=== PATIENT | male | born 1955 | race Caucasian/White ===

== ENCOUNTER → 2016-11-21 | Outpatient (CLI) | payer OTHER ==
[2016-11-21 08:53] LABS: BASOPHILS % (AUTO) 1 % (0-2); EOSINOPHILS # (AUTO) 0.3 10^3uL; EOSINOPHILS % (AUTO) 5 % (0-4); LYMPHOCYTES # (AUTO) 1.1 X10^3; MEAN CORPUSCULAR HEMOGLOBIN 30.1 PG (26.0-34.0); MEAN CORPUSCULAR HGB CONC 34.3 g/dL (31.0-37.0); MEAN CORPUSCULAR VOLUME 88 FL (80-100); MEAN PLATELET VOLUME 10.2 FL (6.0-9.5); MONOCYTES # (AUTO) 0.4 X10^3; MONOCYTES % (AUTO) 6 % (3-11); NEUTROPHILS # (AUTO) 4.8 X10^3; NEUTROPHILS % (AUTO) 70 % (51-67); PLATELET COUNT 201 10^3uL (150-450); WHITE BLOOD COUNT 6.88 10^3uL (4.0-11.0)
[2016-11-21 09:27] LABS: ALBUMIN 3.7 g/dL (3.4-5.0); ANION GAP 13.3 MEQ/L (3-15); CALCULATED IONIZED CALCIUM 4.2 mg/dL (3.8-4.6); TOTAL PROTEIN 6.3 g/dL (6.4-8.5)
== END ==
LOC: LAB 08:38
PROVIDERS: ATTEND Internal Medicine
DX: Z00.00 Encounter for general adult medical examination without abnormal findings (principal); E11.9 Type 2 diabetes mellitus without complications; E78.4 Other hyperlipidemia; I10 Essential (primary) hypertension; N03.2 Chronic nephritic syndrome with diffuse membranous glomerulonephritis
CPT/HCPCS: 36415; 80053; 80061; 83036; 84443; 85025

== ENCOUNTER → 2017-01-09 | Outpatient (CLI) | payer OTHER ==
[~2017-01-09] MED LIST: ALBU2.5V12 INH; AMLO10TA82 PO; ARFO15VI IH; ATOR20TA PO; BISO1TAB6 PO; DLT240CCR PO; DOXY100T41 PO; DXZS4T PO; FURO20TA4 PO; GFN600TCR PO; GLMP1T PO; METF1000 PO; MTP50T PO; NEBU1KIT3 MC; NF-LISIN40 PO; OMG1KC PO; SIMV80TA2 PO; SPRN25T PO; TIOT18CA IH; WRF5T PO; [UNRECOGNIZED DRUG - CODE] PO
[2017-01-09 10:19] LABS: ALBUMIN 3.8 g/dL (3.4-5.0); ANION GAP 17.7 MEQ/L (3-15); PHOSPHORUS 3.8 mg/dL (2.4-4.9)
== END ==
LOC: LAB 09:46
PROVIDERS: ATTEND Internal Medicine Nephrology
DX: R80.9 Proteinuria, unspecified (principal); I10 Essential (primary) hypertension
CPT/HCPCS: 36415; 80069; 82570; 84156

== ENCOUNTER → 2017-02-24 | Outpatient (CLI) | payer OTHER | LOC: LAB 08:50 | PROVIDERS: ATTEND Internal Medicine | DX: Z00.00 Encounter for general adult medical examination without abnormal findings (principal); E11.9 Type 2 diabetes mellitus without complications | CPT/HCPCS: 36415; 83036; 86803 ==